=== PATIENT | female | born 1995 | race Caucasian/White ===

== ENCOUNTER 2020-12-13 22:13 | Emergency (ER) | payer OTHER ==
[~2020-12-13] VITALS: Ht 154.9 cm; Wt 71.7 kg
[2020-12-13] MEDS ORDERED: PREZISTA75 MG PO (22:25)
[2020-12-14 01:50] VITALS: BP 138/78
== END 2020-12-14 01:51 | disposition home or self-care (01) ==
LOC: M.ERS 22:13
DX: S40.022A Contusion of left upper arm, initial encounter (principal); S00.11XA Contusion of right eyelid and periocular area, initial encounter; Y08.89XA Assault by other specified means, initial encounter; Y93.89 Activity, other specified; Y92.89 Other specified places as the place of occurrence of the external cause; Y99.8 Other external cause status